=== PATIENT | male | born 1960 | race Caucasian/White ===

== ENCOUNTER 2020-12-14 09:04 | Day surgery (SDC) | payer OTHER ==
[~2020-12-14] VITALS: Ht 182.9 cm; Wt 88.0 kg
[~2020-12-14 09:04] MED LIST: ALLO100 PO; ALPHA LIPOIC AC50 MG PO; ASPI325 PO; Aspir 8181 MG PO; CIALIS; ENAL10 PO; IBUP600 PO; LORA1 PO; NAPR220 PO; OXYACE5T PO; Percocet 5-3251 EACH PO; Vitamin D2000 UNIT PO; [UNRECOGNIZED DRUG - OTHER] PO
--- NOTE | 2020-12-14 09:20 | NUR ---
Ambulatory in Day Surgery. History, Chart, Medications and Allergies reviewed before start of procedure.Lungs clear T/O to Auscultation. Patient confirms NPO status and agrees with scheduled surgery. Pre-Op teaching done. Pt verbalizes understanding.
--- NOTE | 2020-12-14 13:07 | NUR ---
1255-PT TRANSFERRED TO ROOM VIA OWN BED, A/0 X 4, PLEASANT/COOPERATIVE, DENIES PAIN R/T SPINAL ANESTHESIA, DENIES N/V, PROVIDED WITH PO INTAKE, ORIENTED TO ROOM/CALL LIGHT, BED IN LOWEST POSITION, BED RAILS UP X 2, CALL LIGHT WITHIN REACH. L KNEE BULKY PARDEEP WRAP DRESSING C/D/I, NO SHADOWING; L TOES WITH GOOD CAPILLARY REFILL, UNABLE TO WIGGLE TOES. TEDS/PAS/CRYO IN PLACE
--- NOTE | 2020-12-14 16:00 | NUR ---
patient working with PT
--- NOTE | 2020-12-15 03:50 | NUR ---
SHIFT SUMMARY POD1 FOR L TKA WITH DR. FLORES. PT REPORTS MINIMAL PAIN T/O SHIFT. PAIN MANAGED WITH TORADOL, TYLENOL AND 5MG ROXICODONE. POST OP ABX ADMINISTERED. IV ON R WRIST, SALINE LOCKED. PT TOLERATING PO INTAKE DENIES NAUSEA AND VOMITING. PT DENIES PASSING FLATUS. AMBULATES X 3 T/O SHIFT. TOLERATING IT WELL WITH FWW AND GB AND 1 MIN ASSIST. PT REPORTS CHRONIC N/T RELATED TO NEUROPATHY. VOIDING ADEQUATELY. HE PREFER TO SLEEP ON HIS RECLINER T/O SHIFT. LEFT KNEE WITH PARDEEP WRAPPED AND POLAR PACK. CALL LIGHT WITHIN REACH.
[2020-12-15 04:12] LABS: BASOPHILS ABSOLUTE AUTO 0.01 K/mm3 (0.00-0.23); BASOPHILS PERCENT AUTO 0 % (0-2); EOSINOPHILS ABSOLUTE AUTO 0.01 K/mm3 (0.00-0.68); EOSINOPHILS PERCENT AUTO 0 % (0-6); Hematocrit 36.6 % (37.0-53.0); Hemoglobin 12.8 g/dL (13.5-17.5); IMMATURE GRAN ABSOLUTE AUTO 0.05 K/mm3 (0.00-0.10); IMMATURE GRAN PERCENT AUTO 0 % (0-1); LYMPHOCYTES ABSOLUTE AUTO 0.77 K/mm3 (0.84-5.20); LYMPHOCYTES PERCENT AUTO 6 % (21-46); MONOCYTES ABSOLUTE AUTO 0.73 K/mm3 (0.16-1.47); MONOCYTES PERCENT AUTO 6 % (4-13); Mean Corpuscular Volume 92 fL (80-100); Mean Platelet Volume 9.1 fL (9.1-12.4); NEUTROPHILS ABSOLUTE AUTO 10.61 K/mm3 (1.96-9.15); NEUTROPHILS PERCENT AUTO 87 % (41-73); Platelet Count 253 K/mm3 (150-400); RDW Standard Deviation 40.1 fL (35.1-46.3); White Blood Cell Count 12.18 K/mm3 (4.00-11.30)
[2020-12-15 04:28] LABS: Anion Gap 9 mmol/L (6-16); Blood Urea Nitrogen 23 mg/dL (8-24); Bun/Creatinine Ratio 20.7 (12.0-20.0); CO2, Blood 26 mmol/L (21-32); Calcium, Blood 8.8 mg/dL (8.5-10.1); Chloride, Blood 99 mmol/L (98-108); Creatinine, Blood 1.11 mg/dL (0.60-1.20); Glomerular Filtration Rate >60 (60-); Glucose, Blood 123 mg/dL (70-99); Magnesium, Blood 2.3 mg/dL (1.6-2.4); Potassium, Blood 4.4 mmol/L (3.5-5.5); Sodium, Blood 134 mmol/L (136-145)
[2020-12-15] MEDS ORDERED: ROXICODONE5 MG PO (10:10)
[2020-12-15] MEDS ORDERED: PROM25 PO (10:11)
--- NOTE | 2020-12-15 10:51 | NUR ---
DISCHARGE SUMMARY PT ALERT AND ORIENTED. SBA ASSIST WITH WALKER TO BATHROOM. PAIN CONTROLLED WITH RX. TOLERATING REG DIET. VOIDING WELL. CLEARED BY PHYSICAL THERAPY. DR FLORES CHANGED DRESSING TO LEFT KNEE THIS AM. DISCHARGE EDUCATION GIVE ON ACTIVITY, WOUND CARE, RXS, AND FOLLOW UP APPTS WITH ORTHO AND PHYSICAL THERAPY. IV REMOVED. PATIENT LEFT UNIT VIE WHEELCHAIR WITH SPOUSE FOR HOME AT 1040.
[2021-01-04] MEDS ORDERED: Aspir 8181 MG PO (14:44)
== END 2020-12-15 10:41 | disposition home or self-care (01) ==
LOC: ORSCMMR 09:04 → ORD 10:30 → ORSCMMR 10:45 → ORD 10:45 → SURS 12:41 → ORSCMMR 12-15 10:41 → SURS 12-15 10:41
PROVIDERS: Orthopaedic Surgery
PROC: 8E0YXBZ Computer Assisted Procedure of Lower Extremity (ICD-10-PCS; principal; 2020-12-14 10:45)
PROC: 0SRD0J9 Replacement of Left Knee Joint with Synthetic Substitute, Cemented, Open Approach (ICD-10-PCS; principal; 2020-12-14 10:45)
DX: M17.12 Unilateral primary osteoarthritis, left knee (principal); I10 Essential (primary) hypertension; E78.00 Pure hypercholesterolemia, unspecified; Z79.899 Other long term (current) drug therapy; Z87.891 Personal history of nicotine dependence
CPT/HCPCS: 36415; 73560-LT; 80048; 83735; 85025; 88300; 97110; 97116; 97162; A9270; C1713; C1776; J0171; J0690; J0735; J1100; J1885; J2250; J2370; J2405; J2704; J2795; J3010; J3370; J7120

== ENCOUNTER 2021-01-05 11:14 | Day surgery (SDC) | payer OTHER ==
[~2021-01-05 11:14] MED LIST changes: +PROM25 PO; +ROXICODONE5 MG PO
--- NOTE | 2021-01-05 11:40 | NUR ---
Ambulatory in Day Surgery History, Chart, Medications and Allergies reviewed before start of procedure. Lungs clear T/O to Auscultation. Patient confirms NPO status and agrees with scheduled surgery. Pre-Op teaching done. Pt verbalizes understanding. Patient States Post-Procedure ride home has been arranged.
--- NOTE | 2021-01-05 11:41 | NUR ---
PT'S INITIAL ASSMENTS COMPLETED YESTERDAY AND PT STATES NO CHANGES.
[2021-01-05 14:01] LABS: BODY FLUID RBC 0.184 M/mm3 (0-0); RBC Count, Synovial Fluid 184000 /mm3 (0-0); WBC Count, Synovial Fluid 539 /mm3 (0-180)
--- NOTE | 2021-01-05 15:19 | NUR ---
PT ARRIVED TO THE ROOM AT 1430. PT ALERT AND ORIENTED AT TIME OF ARRIVAL TO THE ROOM. DENIES PAIN. PT REPORTS NUMBNESS TO BLE R/T SPINAL ANESTHESIA. DRESSING IN PLACE, NO DISCHARGE PRESENT AT THIS TIME. VSS. WILL CONTINUE TO MONITOR.
[2021-01-05 15:40] LABS: Appearance, Synovial Fluid Bloody (Clear); Color, Synovial Fluid Red (None-P Yel); Eos, Synovial Fluid 2 % (0-2); Lymphs, Synovial Fluid 25 % (0-15); Monocytes/Macrophages, Synovia 17 % (0-65); Neutrophils, Synovial Fluid 56 % (0-24)
--- NOTE | 2021-01-06 07:42 | NUR ---
SUMMARY PT RECEIVED 1 NORCO AND 1 NAPROSYN TONIGHT WITH VERB GOOD EFFECT.PT HOPING FOR DISCHARGE TODAY.
[2021-01-06] MEDS ORDERED: AMOCLA875 PO (10:38)
--- NOTE | 2021-01-06 15:09 | NUR ---
DRESSING CHANGES DR. FLORES'S OFFICE WAS NOTIFIED THAT PT WILL NOT QUALIFY FOR HOME HEALTH DRESSING CHANGES. SPOKE WITH BHAVIN AT DR. FLORES'S OFFICE AND NOTIFIED HER THAT HE WOULD NEED TO HAVE DRESSING CHANGES AT THE OFFICE OR AT THE WOUND CENTER. BHAVIN VERBALIZED THAT SHE WOULD ARRANGE FOR DRESSING CHANGES TO BE DONE AT THE WOUND CENTER. PT PROVIDED WITH WOUND VAC SUPPLIES, AND EDUCATED HOW TO USE/MAINTAIN WOUND VAC MACHINE. PT ALSO GIVEN USER MANUAL FOR WOUND VAC. PT WAS EDUCATED THAT HE WILL NEED TO FOLLOW-UP WITH THE WOUND CLINIC, CONTACT INFORMATION PROVIDED FOR WOUND CLINIC. PT EDUCATED TO CALL DR. FLORES'S OFFICE AND THE WOUND CLINIC IF HE DOES NOT HEAR FROM THEM EARLY ON SATURDAY FOR DRESSING CHANGE.
--- NOTE | 2021-01-06 15:24 | NUR ---
DISCHARGE PATIENT HAD DISCAHRGE TEACHING ON SIGNS OF INFECTION.PATEINT HAD TEACHING ON HOW TO USE A WOUND VAC AND WOUND CARE.PATIENT EXPLAINED BACK HIS UNDERSTANDING .PATIENT WAS SENT HOME WITH A WOUND VAC MANUAL.PATIENT PAIN WAS MANAGED. PATIENT VOIDED,TOLERATED PO AND CLEARED PHYSICIAL THERAPY BEFORE DISCHARGE.
--- NOTE | 2021-01-06 19:03 | NUR ---
PT PAIN WAS MANAGED PT WAS DISCHARGED AND RECEIVED WOUND CARE/VAC TECAHING BEFORE DISCHARGE
== END 2021-01-06 15:07 | disposition home or self-care (01) ==
LOC: ORSCMMR 11:14 → SURS 12:17 → ORSCMMR 12:17 → SURS 15:27 → ORSCMMR 01-06 15:07 → SURS 01-06 15:07
PROVIDERS: Orthopaedic Surgery
PROC: 0MTP0ZZ Resection of Left Knee Bursa and Ligament, Open Approach (ICD-10-PCS; principal; 2021-01-05 12:30)
DX: M70.42 Prepatellar bursitis, left knee (principal); I70.263 Atherosclerosis of native arteries of extremities with gangrene, bilateral legs; F32.9 Major depressive disorder, single episode, unspecified; E78.00 Pure hypercholesterolemia, unspecified; I10 Essential (primary) hypertension; G89.29 Other chronic pain; Z87.891 Personal history of nicotine dependence; Z79.899 Other long term (current) drug therapy; Z79.82 Long term (current) use of aspirin
CPT/HCPCS: 87070; 87071; 87075; 87077; 87186; 87205; 89051; 97116-CQ; 97161; A9270; A9270-GY; J0171; J0690; J0696; J0735; J1650; J1885; J2370; J2704; J2795; J3010; J3370; J7120

== ENCOUNTER 2021-01-09 08:38 | Day surgery (SDC) | payer OTHER ==
[~2021-01-09 08:38] MED LIST changes: +AMOCLA875 PO
== END 2021-01-09 22:57 | disposition home or self-care (01) ==
LOC: WOUND 08:38
DX: M70.42 Prepatellar bursitis, left knee (principal); Z96.652 Presence of left artificial knee joint
CPT/HCPCS: G0463

== ENCOUNTER 2021-03-25 15:49 | Emergency (ER) | payer OTHER ==
[~2021-03-25] VITALS: Ht 182.9 cm; Wt 90.7 kg
[2021-03-25 16:18] LABS: BASOPHILS ABSOLUTE AUTO 0.05 K/mm3 (0.00-0.23); BASOPHILS PERCENT AUTO 1 % (0-2); EOSINOPHILS ABSOLUTE AUTO 0.27 K/mm3 (0.00-0.68); EOSINOPHILS PERCENT AUTO 3 % (0-6); Hematocrit 39.8 % (37.0-53.0); Hemoglobin 13.9 g/dL (13.5-17.5); IMMATURE GRAN ABSOLUTE AUTO 0.03 K/mm3 (0.00-0.10); IMMATURE GRAN PERCENT AUTO 0 % (0-1); LYMPHOCYTES ABSOLUTE AUTO 1.46 K/mm3 (0.84-5.20); LYMPHOCYTES PERCENT AUTO 16 % (21-46); MONOCYTES ABSOLUTE AUTO 0.78 K/mm3 (0.16-1.47); MONOCYTES PERCENT AUTO 9 % (4-13); Mean Corpuscular HGB 31.9 pg (26.0-34.0); Mean Corpuscular HGB Conc 34.9 g/dL (31.5-36.5); Mean Corpuscular Volume 91 fL (80-100); Mean Platelet Volume 9.5 fL (9.1-12.4); NEUTROPHILS ABSOLUTE AUTO 6.36 K/mm3 (1.96-9.15); NEUTROPHILS PERCENT AUTO 71 % (41-73); Platelet Count 253 K/mm3 (150-400); RDW Coefficient Variation 11.7 % (11.7-14.2); RDW Standard Deviation 39.3 fL (35.1-46.3); Red Blood Cell Count 4.36 M/mm3 (4.30-5.90); White Blood Cell Count 8.95 K/mm3 (4.00-11.30)
[2021-03-25 16:42] LABS: Alanine Aminotransfer (ALT/SGP 29 U/L (12-78); Albumin, Blood 3.9 g/dL (3.4-5.0); Albumin/Globulin Ratio 1.1 (0.8-1.8); Alk Phos 81 U/L (50-136); Anion Gap 7 mmol/L (6-16); Aspartate Aminotrans (AST/SGOT 31 U/L (12-37); Bilirubin, Total 0.3 mg/dL (0.1-1.0); Blood Urea Nitrogen 18 mg/dL (8-24); Bun/Creatinine Ratio 17.6 (12.0-20.0); CO2, Blood 23 mmol/L (21-32); Calcium, Blood 8.7 mg/dL (8.5-10.1); Chloride, Blood 109 mmol/L (98-108); Creatinine, Blood 1.02 mg/dL (0.60-1.20); Globulin, Blood 3.4 g/dL (2.2-4.0); Glomerular Filtration Rate >60 (60-); Glucose, Blood 93 mg/dL (70-99); Sodium, Blood 139 mmol/L (136-145); Total Protein, Blood 7.3 g/dL (6.4-8.2)
[2021-03-25 16:47] LABS: Source, Urine Clean Catch
[2021-03-25 16:52] LABS: Appearance, Urine Clear (Clear); Bilirubin, Urine Neg (Neg); Blood, Urine 5+ (Neg); Color, Urine Yellow (P-Yellow); Glucose Qualitative, Urine Neg (Neg); Ketones, Urine Neg (Neg); Leukocyte Esterase, Urine Neg (Neg); Nitrite, Urine Neg (Neg); Protein, Urine 1+ (Neg); Specific Gravity, Urine 1.015 (1.003-1.022); Urobilinogen, Urine NORM (Normal)
[2021-03-25 16:58] LABS: Red Blood Cells, Urine TNTC /hpf (0-2)
[2021-03-25] MEDS ORDERED: Flomax0.4 MG PO (16:58)
[2021-03-25 16:59] LABS: Bacteria Few /hpf; Squamous Epithelial Cells Not Seen /hpf (Few)
== END 2021-03-25 17:05 | disposition home or self-care (01) ==
LOC: ER 15:49
PROVIDERS: Physician Assistant
DX: N20.0 Calculus of kidney (principal); Z88.2 Allergy status to sulfonamides; Z88.8 Allergy status to other drugs, medicaments and biological substances; Z79.82 Long term (current) use of aspirin; Z79.899 Other long term (current) drug therapy; Z87.891 Personal history of nicotine dependence
CPT/HCPCS: 36415; 80053; 81001; 83690; 85025; 96374; 99284-25; J2405; J7030

== ENCOUNTER 2021-10-31 06:57 | Day surgery (SDC) | payer OTHER ==
[~2021-10-31] VITALS: Ht 182.9 cm; Wt 87.5 kg
[~2021-10-31 06:57] MED LIST changes: +Flomax0.4 MG PO
[2021-10-31] MEDS ORDERED: ZINC15 PO (07:39)
[2021-10-31] MEDS ORDERED: THERA-D2000 UNIT PO (07:39)
--- NOTE | 2021-10-31 08:52 | NUR ---
10/31/21 0852 Ivonne Jones History, Chart, Medications and Allergies reviewed before start of procedure. Patient confirms NPO status and agrees with scheduled surgery. 3-LEAD EKG REVIEWED WITH PHYSICIAN PRIOR TO START OF PROCEDURE. MONITOR INTACT WITH CONTINUOUS PULSE OXIMETRY AND INTERMITTENT BP. PATIENT DETERMINED TO BE ASA APPROPRIATE FOR PROPOFOL SEDATION PRIOR TO START OF PROCEDURE BY DR. WHELAN.
--- NOTE | 2021-10-31 09:55 | NUR ---
PT TOLERATING PO. Patient up to Ambulate independently. Gait steady. Discharge instructions reviewed with patient. Patient verbalizes understanding. Copy given to patient to take home. Patient States Post-Procedure ride home has been arranged. Discharged via wheelchair to private car for ride home.
== END 2021-10-31 09:55 | disposition home or self-care (01) ==
LOC: ORSCMMR 06:57 → ORSCSDS 08:30 → ORD 08:30 → ORSCMMR 09:55
PROVIDERS: Surgery
PROC: 0DJD8ZZ Inspection of Lower Intestinal Tract, Via Natural or Artificial Opening Endoscopic (ICD-10-PCS; principal; 2021-10-31 08:30)
DX: Z12.11 Encounter for screening for malignant neoplasm of colon (principal); Z86.010 Personal history of colon polyps; Z80.0 Family history of malignant neoplasm of digestive organs; I10 Essential (primary) hypertension; Z79.899 Other long term (current) drug therapy
CPT/HCPCS: J2704; J7120

== ENCOUNTER 2024-12-10 06:22 | Day surgery (SDC) | payer OTHER ==
[2024-12-10] VITALS (9 sets, daily range): BP systolic 116–149; BP diastolic 75–88
[~2024-12-10] VITALS: Ht 178 cm; Wt 88.0 kg
[~2024-12-10 06:22] MED LIST changes: +Enalapril Malea20 MG PO; +REVATIO20 MG PO; +THERA-D2000 UNIT PO; +ZINC15 PO
[2024-12-10] MEDS ORDERED: CeFAZolin Sodium 2,000 MG in NS 100 ML IV SCH (06:25)
[2024-12-10] MEDS ORDERED: Lactated Ringer's 1,000 ML IV SCH (06:25)
[2024-12-10] MEDS ORDERED: Bupivacaine 0.5% HCl 5 MG/ML 30MLVIAL ONE (07:01)
[2024-12-10] MEDS ORDERED: propofoL 20 ML IV ONE (07:19)
[2024-12-10] MEDS ORDERED: FentaNYL Citrate 50 MCG/ML 2 ML Injection ONE (07:19)
[2024-12-10] MEDS ORDERED: Lidocaine HCl 2% 20 ML MDV ONE (07:19)
[2024-12-10] MEDS ORDERED: Midazolam HCl 1MG / ML 2ML Vial ONE (07:19)
[2024-12-10] MEDS ORDERED: Rocuronium Bromide 10 MG/ML 5ML Injection IV ONE (07:21)
[2024-12-10] MEDS ORDERED: Ondansetron HCl 2 MG / ML 2ML Vial ONE (07:27)
[2024-12-10] MEDS ORDERED: Dexamethasone Sod Phos 10 MG/ML 1ML VIAL ONE (07:27)
[2024-12-10] MEDS ORDERED: Phenylephrine HCl 100 MCG/ML-NS 10MLSYR (1MG/10ML) ONE (07:29)
[2024-12-10] MEDS ORDERED: Sugammadex Sodium 200 MG/2ML SDV (100 MG/ML) ONE (07:48)
[2024-12-10] MEDS ORDERED: Ketorolac Tromethamine 30mg Vial ONE ×2 (07:48)
[2024-12-10] MEDS ORDERED: HYDROcodone 5-APAP 325 TAB PO PRN (08:30)
--- NOTE | 2024-12-10 09:21 | NUR ---
Dressing to procedure site clean, dry, intact with no visible drainage, swelling, erythema or bruising noted. Discharge instructions reviewed with patient. Patient verbalizes understanding. Copy given to patient to take home. Discharged via wheelchair to private car for ride home.
== END 2024-12-10 09:22 | disposition home or self-care (01) ==
LOC: ORSCMMR 06:22 → ORD 07:30 → ORSCMMR 07:30
PROVIDERS: Surgery
PROC: 0WQF0ZZ Repair Abdominal Wall, Open Approach (ICD-10-PCS; principal; 2024-12-10 07:30)
DX: K42.9 Umbilical hernia without obstruction or gangrene (principal); I10 Essential (primary) hypertension; E78.5 Hyperlipidemia, unspecified; R73.9 Hyperglycemia, unspecified; Z79.82 Long term (current) use of aspirin; Z87.891 Personal history of nicotine dependence; G47.33 Obstructive sleep apnea (adult) (pediatric)
CPT/HCPCS: 82947; J0690; J1100; J1885; J2250; J2371; J2405; J2704; J3010; J7120

== ENCOUNTER 2025-07-22 14:53 | Inpatient (IN) | payer OTHER ==
[~2025-07-22] VITALS: Ht 180.3 cm; Wt 85.9 kg
[2025-07-22 15:50] LABS: BASOPHILS ABSOLUTE AUTO 0.11 K/mm3 (0.00-0.23); BASOPHILS PERCENT AUTO 1 % (0-2); EOSINOPHILS ABSOLUTE AUTO 0.58 K/mm3 (0.00-0.68); EOSINOPHILS PERCENT AUTO 7 % (0-6); Hematocrit 39.9 % (37.0-53.0); Hemoglobin 14.1 g/dL (13.5-17.5); IMMATURE GRAN ABSOLUTE AUTO 0.03 K/mm3 (0.00-0.10); IMMATURE GRAN PERCENT AUTO 0 % (0-1); LYMPHOCYTES ABSOLUTE AUTO 1.71 K/mm3 (0.84-5.20); LYMPHOCYTES PERCENT AUTO 21 % (21-46); MONOCYTES ABSOLUTE AUTO 0.72 K/mm3 (0.16-1.47); MONOCYTES PERCENT AUTO 9 % (4-13); Mean Corpuscular HGB Conc 35.3 g/dL (31.5-36.5); Mean Corpuscular Volume 94 fL (80-100); NEUTROPHILS ABSOLUTE AUTO 4.95 K/mm3 (1.96-9.15); NEUTROPHILS PERCENT AUTO 61 % (41-73); NRBC ABSOLUTE 0.00 K/mm3 (0.00-0.02); NRBC Auto 0.0 /100 WBC (0.0-0.2); Platelet Count 219 K/mm3 (150-400); RDW Coefficient Variation 11.9 % (11.7-14.2); RDW Standard Deviation 40.5 fL (35.1-46.3)
[2025-07-22 16:21] LABS: Alanine Aminotransfer (ALT/SGP 33.0 U/L (12-78); Albumin, Blood 4.0 g/dL (3.4-5.0); Albumin/Globulin Ratio 1.3 (0.8-1.8); Anion Gap 7.0 mmol/L (3-11); Aspartate Aminotrans (AST/SGOT 23.0 U/L (12-37); Bilirubin, Total 0.3 mg/dL (0.1-1.0); Blood Urea Nitrogen 34.0 mg/dL (8-24); CO2, Blood 23.0 mmol/L (21-32); Calcium, Blood 8.6 mg/dL (8.5-10.1); Chloride, Blood 108.0 mmol/L (98-108); Creatinine, Blood 1.41 mg/dL (0.60-1.20); Globulin, Blood 3.0 g/dL (2.2-4.0); Glucose, Blood 80.0 mg/dL (70-99); Potassium, Blood 4.2 mmol/L (3.5-5.5); Sodium, Blood 134.0 mmol/L (136-145); Total Protein, Blood 7.0 g/dL (6.4-8.2)
[2025-07-22 17:24] LABS: Source, Urine Clean Catch
[2025-07-22 17:26] LABS: Bilirubin, Urine Neg (Neg); Color, Urine Yellow (P-Yellow); Glucose Qualitative, Urine Neg (Neg); Ketones, Urine Neg (Neg); Leukocyte Esterase, Urine 2+ (Neg); Protein, Urine Neg (Neg); Specific Gravity, Urine 1.020 (1.003-1.022); Urobilinogen, Urine NORM (Normal)
[2025-07-22 17:35] LABS: White Blood Cells, Urine 25-50 /hpf (0-5)
[2025-07-22] MEDS ORDERED: NS 1,000 ML IV SCH (18:05)
[2025-07-22] MEDS ORDERED: Ondansetron HCl 2 MG / ML 2ML Vial IV PRN (18:10)
[2025-07-22] MEDS ORDERED: OxyCODONE 5 mg/Acetamin 325 mg TABLET PO PRN (18:10)
[2025-07-22] MEDS ORDERED: FLU VACC TS2025(65UP)/MF59C/PF 45 MCG/0.5 ML SYRINGE IM SCH (18:10)
[2025-07-22] MEDS ORDERED: CefTRIAXone Sodium 1,000 MG in NS 100 ML IV SCH (19:00)
[2025-07-22 20:47] VITALS: BP 135/79
[2025-07-22] MEDS ORDERED: Lactobacil 2-S.Thermo-Bifido 1 1 Cap PO SCH (21:00)
[2025-07-23] VITALS (13 sets, daily range): BP systolic 73–138; BP diastolic 45–99
[2025-07-23 04:55] LABS: Hematocrit 37.1 % (37.0-53.0); Hemoglobin 13.0 g/dL (13.5-17.5); Mean Corpuscular HGB Conc 35.0 g/dL (31.5-36.5); Mean Corpuscular Volume 94 fL (80-100); NRBC ABSOLUTE 0.00 K/mm3 (0.00-0.02); NRBC Auto 0.0 /100 WBC (0.0-0.2); Platelet Count 180 K/mm3 (150-400); RDW Coefficient Variation 11.8 % (11.7-14.2); RDW Standard Deviation 40.5 fL (35.1-46.3)
--- NOTE | 2025-07-23 05:08 | NUR ---
SHIFT SUMMARY PT A&Ox4 AND PLEASANT. PT DENIED FLANK PAIN OR PAIN RELATED TO KIDNEY STONE BUT PT DOES HAVE 5/10 BACK PAIN THAT IS CHRONIC. DECLINED PAIN MEDICATION. NS INFUSING AT 100ml/hr. NPO AT MIDNIGHT. URINE STRAINED DURING THE NIGHT. VSS. IND IN ROOM. BED IN LOWEST POSITION AND CALL LIGHT IN REACH.
[2025-07-23 05:16] LABS: Anion Gap 8.0 mmol/L (3-11); Blood Urea Nitrogen 32.0 mg/dL (8-24); CO2, Blood 23.0 mmol/L (21-32); Calcium, Blood 8.4 mg/dL (8.5-10.1); Chloride, Blood 109.0 mmol/L (98-108); Creatinine, Blood 1.38 mg/dL (0.60-1.20); Glucose, Blood 102.0 mg/dL (70-99); Potassium, Blood 4.1 mmol/L (3.5-5.5); Sodium, Blood 136.0 mmol/L (136-145)
[2025-07-23] MEDS ORDERED: Enoxaparin 40 MG/0.4 ML SYR SC SCH (09:00)
[2025-07-23] MEDS ORDERED: Glycopyrrolate 0.2 MG/ML 1MLVIAL ONE (13:46)
[2025-07-23] MEDS ORDERED: ePHEDrine Sulfate 50 MG/ML 1ML Injection ONE (13:48)
--- NOTE | 2025-07-23 13:52 | NUR ---
07/23/25 1352 Ruth Ann Quijano [address] DILUTED 1:1 WITH NACL USED THROUGHOUT PROCEDURE. SPINAL BLOCK COMPLETED BY UPON ENTRY TO OR.
[2025-07-23] MEDS ORDERED: CEFD300 PO (16:18)
--- NOTE | 2025-07-23 17:23 | NUR ---
PT DISCHARGED TODAY. EDUCATION WAS PROVIDED TO PT ABOUT F/U APPOINTMENTS, NEW MEDICATION, AND DIAGNOSIS. PT VERBALIZED UNDERSTANDING.
== END 2025-07-23 16:34 | disposition home or self-care (01) | DRG 661 ==
LOC: ER 14:53 → MEDS 18:04
PROVIDERS: Emergency Medicine; Nurse Practitioner Acute Care; Urology; ADMIT Internal Medicine
PROC: 3E03329 Introduction of Other Anti-infective into Peripheral Vein, Percutaneous Approach (ICD-10-PCS; 2025-07-22)
PROC: 0T768DZ Dilation of Right Ureter with Intraluminal Device, Via Natural or Artificial Opening Endoscopic (ICD-10-PCS; principal; 2025-07-23 13:00)
DX: N13.2 Hydronephrosis with renal and ureteral calculous obstruction (principal); M47.816 Spondylosis without myelopathy or radiculopathy, lumbar region; I10 Essential (primary) hypertension; Z88.2 Allergy status to sulfonamides; Z87.891 Personal history of nicotine dependence; Z96.643 Presence of artificial hip joint, bilateral; Z79.1 Long term (current) use of non-steroidal anti-inflammatories (NSAID)
CPT/HCPCS: 36415; 74176; 80048; 80053; 81001; 85025; 85027; 87086; 99284-25; A9270; C1758; C1769; C2617; J0696; J7030; J7120

== ENCOUNTER 2025-08-10 10:05 | Day surgery (SDC) | payer OTHER ==
[~2025-08-10] VITALS: Ht 180.3 cm; Wt 85.9 kg
[~2025-08-10 10:05] MED LIST changes: +CEFD300 PO
[2025-08-10] MEDS ORDERED: CeFAZolin Sodium 2,000 MG VIAL ONE (10:28)
[2025-08-10] MEDS ORDERED: [UNRECOGNIZED DRUG - OTHER] (10:36)
[2025-08-10] MEDS ORDERED: [UNRECOGNIZED DRUG - OTHER] (10:36)
[2025-08-10] MEDS ORDERED: ZINC15 (10:36)
[2025-08-10] MEDS ORDERED: Vitamin D1000 UNI1 (10:36)
[2025-08-10] MEDS ORDERED: FentaNYL Citrate 50 MCG/ML 2 ML Injection ONE (11:11)
[2025-08-10] MEDS ORDERED: Dexamethasone Sod Phos 10 MG/ML 1ML VIAL ONE (11:22)
[2025-08-10] MEDS ORDERED: ePHEDrine Sulfate 50 MG/ML 1ML Injection ONE (11:47)
[2025-08-10] MEDS ORDERED: Ondansetron HCl 2 MG / ML 2ML Vial ONE (12:09)
--- NOTE | 2025-08-10 13:28 | NUR ---
08/10/25 1328 Arti Soto PT REPORTED NEED TO USE THE RESTROOM/BM. VSS ON RA IN SDU BEFORE. PT UP TO TOILET MINIMAL ASSIST. PT REPORT FEELING THE NEED TO USE THE RESTROOM BUT UNABLE TO VOID OR BM AT THIS TIME. PT REPORTED A LITTLE BLEEDING FROM TIP OF PENIS, SCANT BLOOD NOTED. REPORT GIVEN TO SABRINA VENTURA. VS TAKEN WHEN PT CAME BACK INTO SDU.
[2025-08-10 14:28] VITALS: BP 119/78
[2025-08-10] MEDS ORDERED: HYDROcodone 5-APAP 325 TAB ONE (14:43)
== END 2025-08-10 15:00 | disposition home or self-care (01) ==
LOC: ORSCSDS 10:05
PROVIDERS: Urology
PROC: 0T768DZ Dilation of Right Ureter with Intraluminal Device, Via Natural or Artificial Opening Endoscopic (ICD-10-PCS; principal; 2025-08-10 11:30)
PROC: 0TC68ZZ Extirpation of Matter from Right Ureter, Via Natural or Artificial Opening Endoscopic (ICD-10-PCS; principal; 2025-08-10 11:30)
DX: N20.1 Calculus of ureter (principal); N13.30 Unspecified hydronephrosis; I10 Essential (primary) hypertension; Z79.899 Other long term (current) drug therapy
CPT/HCPCS: A9270; C1769; C2617; J0690; J1100; J2405; J2704; J3010; J7120

== ENCOUNTER → 2025-08-17 | Outpatient (CLI) | payer OTHER ==
[~2025-08-17] MED LIST changes: +Vitamin D1000 UNI1; +ZINC15; +[UNRECOGNIZED DRUG - OTHER]; +[UNRECOGNIZED DRUG - OTHER]
[2025-08-23 15:34] LABS: CALCIUM, URINE - PER 24H 201 mg/d (100-250); CALCIUM, URINE - PER VOLUME 6.7 mg/dL; CHLORIDE, URINE - PER 24H 183 mmol/d (140-250); CHLORIDE, URINE - PER VOLUME 61 mmol/L; CITRIC ACID, URINE - PER 24H 84 mg/d (320-1240); CITRIC ACID,URINE - PER VOLUME 28 mg/L; CREATININE, URINE - PER 24H 1650 mg/d (800-2100); CREATININE, URINE - PER VOLUME 55 mg/dL; HOURS COLLECTED 24 hr; MAGNESIUM, URINE - PER VOLUME 3.6 mg/dL; MAGNESIUM, URINE PER 24H 108 mg/d (12-199); OXALATE, URINE - PER 24H 81 mg/d (16-49); OXALATE, URINE - PER VOLUME 27 mg/L; PHOSPHORUS, URINE - PER 24H 1050 mg/d (400-1300); PHOSPHORUS, URINE - PER VOLUME 35 mg/dL; POTASSIUM, URINE - PER 24H 66 mmol/d (25-125); POTASSIUM, URINE - PER VOLUME 22 mmol/L; SODIUM, URINE - PER 24H 192 mmol/d (51-286); SODIUM, URINE - PER VOLUME 64 mmol/L; SULFATE, URINE - PER 24H 21 mmol/d (6-30); SULFATE, URINE - PER VOLUME 7 mmol/L; URIC ACID, URINE - PER 24H 579 mg/d (250-750); URIC ACID, URINE - PER VOLUME 19.3 mg/dL; URINE SUPERSATURATION INTERP Abnormal; URINE SUPERSATURATION, CAHPO4 0.86; URINE SUPERSATURATION, CAOX 8.23; URINE SUPERSATURATION, UA CALC 0.36
== END ==
LOC: LAB 06:00 → LAB SHORT 06:00
PROVIDERS: Urology
DX: N20.0 Calculus of kidney (principal)
CPT/HCPCS: 81003; 81050; 82131; 82140; 82340; 82436; 82507; 82570; 83735; 83935; 83945; 84105; 84133; 84300; 84392; 84560